=== PATIENT | female | born 1955 | race Caucasian/White ===

== ENCOUNTER 2017-06-01 07:43 | Inpatient (IN) | payer OTHER ==
[2017-05-03 13:16] VITALS: Ht 165.1 cm; Wt 92.5 kg
--- NOTE | 2017-05-03 13:51 | PAT Medication Instructions ---
Service Date May 03, 2017. Current Home Medication List Aspirin (Aspirin Ec), 81 MG PO HS Diclofenac (Voltaren), 75 MG PO BID PRN for PRN Diltiazem Hcl Coated Beads (Cardizem Cd), 240 MG PO QAM Fluticasone Propionate (Nasal) (Flonase Allergy Relief), 2 SPRAYS INTNAS QAM Irbesartan (Avapro), 1 TAB PO QAM Magnesium Oxide (Mag-Ox), 400 MG PO HS Melatonin (Melatonin Maximum Strengt), 1 TAB PO HS Multivitamin (Multivitamin), 1 TAB PO QAM Naproxen (Aleve), 440 MG PO PRN [place]-3 Fatty Acids (Fish Oil), 1 TAB PO BID Omeprazole (Prilosec), 20 MG PO QAM Medication Instructions For Your Scheduled Surgery - Hold the following medications 2 weeks prior to surgery: [place]-3 Fatty Acids (Fish Oil), 1 TAB PO BID - Hold the following medications the morning of surgery: Multivitamin (Multivitamin), 1 TAB PO QAM Irbesartan (Avapro), 1 TAB PO QAM Diclofenac (Voltaren), 75 MG PO BID PRN for PRN (otherwise okay to continue per surgeon) Naproxen (Aleve), 440 MG PO PRN (otherwise okay to continue per surgeon) - Take the following medications the morning of surgery with a sip of water OTHERWISE NOTHING TO EAT OR DRINK AFTER MIDNIGHT: Omeprazole (Prilosec), 20 MG PO QAM Diltiazem Hcl Coated Beads (Cardizem Cd), 240 MG PO QAM Fluticasone Propionate (Nasal) (Flonase Allergy Relief), 2 SPRAYS INTNAS QAM - Take the following medications as scheduled the night before surgery: Aspirin (Aspirin Ec), 81 MG PO HS Magnesium Oxide (Mag-Ox), 400 MG PO HS Melatonin (Melatonin Maximum Strengt), 1 TAB PO HS If you have any questions please call us at [phone] or [phone] or [phone]
[2017-05-03 14:23] LABS: BASO % 0.3 %; BASO ABS # 0.03 K/uL (0-0.2); EOS % 6.4 %; EOS ABS # 0.65 K/uL (0-0.5); HEMATOCRIT 42.8 % (37-47); HEMOGLOBIN 14.7 g/dL (12.0-16.0); IG# 0.02 K/uL (0.00-0.02); LYMPH % 26.4 %; LYMPH ABS # 2.67 K/uL (1.2-3.4); MEAN CELL VOLUME 87.2 fL (80-100); MEAN CORPUSCULAR HEMOGLOBIN 29.9 pg (25-34); MEAN CORPUSCULAR HGB CONC 34.3 g/dl (32-36); MEAN PLATELET VOLUME 9.8 fL (7.4-10.4); MONO % 8.8 %; MONO ABS # 0.89 K/uL (0.11-0.59); NEUT % 57.9 %; NEUT ABS # 5.85 K/uL (1.4-6.5); PLATELET COUNT 226 K/uL (130-400); RED CELL DISTRIBUTION WIDTH CV 13.2 % (11.5-14.5); RED CELL DISTRIBUTION WIDTH SD 42.2 fL (36.4-46.3); WHITE BLOOD COUNT 10.11 K/uL (4.8-10.8)
[2017-05-03 14:36] LABS: INR 0.9 (0.9-1.1); PTT PATIENT 24.9 SECONDS (21.0-31.0)
--- NOTE | 2017-05-03 14:44 | DIAGNOSTIC IMAGING REPORT ---
CHEST 2 VIEWS ROUTINE CLINICAL HISTORY: PAT preoperative evaluation COMPARISON STUDY: No previous studies for comparison. FINDINGS: The bones soft tissues and hemidiaphragms are normal. The cardiomediastinal silhouette is normal. The lungs are clear. The pulmonary vasculature is normal. IMPRESSION: Negative chest. The above report was generated using voice recognition software. It may contain grammatical, syntax or spelling errors. Electronically signed by: Enoch Samaniego M.D. 05/03/2017 2:43 PM Dictated Date/Time: 05/03/2017 2:43 PM
[2017-05-03 15:18] LABS: CALCIUM 9.6 mg/dl (8.5-10.1); CREATININE 1.07 mg/dl (0.60-1.20); POTASSIUM 4.3 mmol/L (3.5-5.1)
--- NOTE | 2017-05-27 08:59 | HISTORY & PHYSICAL EXAMINATION ---
DATE OF ADMISSION: 06/01/2017 CHIEF COMPLAINT: Primary osteoarthritis of the right hip. HISTORY OF PRESENT ILLNESS: Franca is a pleasant 61-year-old female who has been dealing with chronic right hip pain for several years. X-rays and clinical examination were diagnostic for primary osteoarthritis of the right hip. After failing extensive conservative treatment, she has elected to proceed with a right total hip arthroplasty. PAST MEDICAL HISTORY: Significant for hypertension, irregular heartbeats when her magnesium was low, sleep apnea, osteoarthritis, GERD. MEDICATIONS: Include Cardizem 240 mg daily, Avapro 300 mg daily, Prilosec 20 mg daily, fish oil 1200 mg daily, Flonase daily, propionate 50 mcg daily, aspirin 81 mg daily, magnesium daily, and melatonin 5 mg daily. ALLERGIES: Include no drug allergies. PAST SURGICAL HISTORY: Include tubal ligation in 1983, kidney stones in 2015, sclerotherapy EVLA in 2013, and a sinuplasty in 2014. SOCIAL HISTORY: She denies any tobacco, alcohol or IV drug use. FAMILY HISTORY: Noncontributory. REVIEW OF SYSTEMS: She complains of right hip and groin pain. All other pertinent review of systems is negative. PHYSICAL EXAMINATION: GENERAL: She is awake, alert and oriented x3. She is in no apparent distress. She is very pleasant. HEENT: Pupils are equal, round and reactive to light. Extraocular motion is intact. Oral mucosa is pink and moist. HEART: Regular rate per radial pulse. LUNGS: Elena symmetrically bilaterally with no audible breath sounds. ABDOMEN: Soft, nontender, nondistended. MUSCULOSKELETAL: On physical examination of the right hip, her right leg is a little bit shorter than the left. She has a significant decreased range of motion. She has pain with forced internal and external rotation. She is neurovascularly intact. IMAGING: X-rays of the hip and pelvis show primary osteoarthritis with joint space narrowing and osteophyte formation. IMPRESSION: Primary osteoarthritis of the right hip. PLAN: We will proceed with a right total hip arthroplasty. Postoperatively, she will be started on aspirin for DVT prophylaxis and kept in the hospital for 2 midnights for postoperative medical management.
[2017-06-01] VITALS (7 sets, daily range): BP systolic 114–171; BP diastolic 65–80; PULSE 74–89; TEMP 36.4–37; O2SAT 92–98
[~2017-06-01] VITALS: Ht 165.1 cm; Wt 92.5 kg
[2017-06-01] MEDS: TRANEXAMIC ACID INJ 1,000 MG in SYRINGE 0 ML IV SCH ×2 (06:00→14:50)
--- NOTE | 2017-06-01 06:40 | History & Physical Bridge Note ---
H&P Re-Evaluation Bridge Note: I have examined the patient, reviewed the History & Physical and in the interval since the performance of the History & Physical I have noted the following changes of clinical significance: No changes noted
[~2017-06-01 07:43] MED LIST: ACETAMINOPHEN 500 MG TAB PO SCH; ASPI81TA28 PO; BUPIVACAINE 0.5 % 5 MG/1 ML PF 10ML VIAL ONE; CEFAZOLIN 2000MG IV PUSH 10 ML IV SCH; DICL-201 PO; DILT240C57 PO; FAMOTIDINE 20 MG TAB PO SCH; FLUT0.15 INTNAS; GABAPENTIN 300 MG CAP PO SCH; IRBE-39 PO; LACTATED RINGER'S 1000ML IV SCH; LACTATED RINGER'S 500 ML IV SCH; MAGN400T6 PO; MELATAB2 PO; MULT-506 PO; NAPR1TAB9 PO; OMEG-21 PO; PRLSR20 PO; ROPIVACAINE 5MG/ML 30 ML 150 MG, BUPIVACAINE 0.5% MPF INJ 30 ML, EpINEphrine HCL INJ 0.... INFIL SCH
[2017-06-01] MEDS ORDERED: ATROPINE SULFATE 0.1 MG/ML 5ML SYR IV PRN (08:15)
[2017-06-01] MEDS ORDERED: FENTANYL CITRATE INJ 50 MCG/1 ML 2 ML VIAL IV PRN (08:15)
[2017-06-01] MEDS ORDERED: ONDANSETRON INJ 2 MG/ML 2 ML VIAL IV PRN ×2 (08:15→12:30)
[2017-06-01] MEDS ORDERED: EpHEDrine SULFATE INJ 50 MG/ML AMP IV PRN (08:15)
[2017-06-01] MEDS ORDERED: FENTANYL CITRATE INJ 50 MCG/1 ML 2 ML VIAL ONE ×2 (08:59→11:33)
[2017-06-01] MEDS ORDERED: MIDAZOLAM HCL 1 MG/ML 2ML VIAL ONE (08:59)
[2017-06-01] MEDS ORDERED: ORTHO JOINT ANESTHETIC ONE (09:50)
[2017-06-01] MEDS ORDERED: BACITRACIN 50000 UNIT VIAL ONE (09:50)
[2017-06-01] MEDS ORDERED: ONDANSETRON INJ 2 MG/ML 2 ML VIAL ONE (11:47)
[2017-06-01] MEDS ORDERED: EpHEDrine SULFATE 50MG/5ML SYR ONE (11:47)
[2017-06-01] MEDS ORDERED: PHENYLEPHRINE HCL INJ 10 MG/ML VIAL ONE (11:47)
[2017-06-01] MEDS ORDERED: PROPOFOL IV EMULSION 10 MG/ML 20 ML VIAL IV ONE (11:47)
--- NOTE | 2017-06-01 12:17 | [facility] Post Operative Brief Note ---
Immediate Operative Summary Operative Date Jun 01, 2017. Pre-Operative Diagnosis Right Hip Degenerative Joint Disease Post-Operative Diagnosis Same as preop Procedure(s) Performed Right Anterior Total Hip Arthroplasty Uncemented Surgeon Dr. Vivas Crnp Surgeon(s) Otoniel Poole PA-C Estimated Blood Loss 250 ml Findings as above Specimens A. Right Femoral Head Complication(s) None Disposition Recovery Room / PACU
--- NOTE | 2017-06-01 12:24 | DIAGNOSTIC IMAGING REPORT ---
R HIP UNILATERAL 1 VIEW CLINICAL HISTORY: 61 years-old Female presenting with RT ANTERIOR HIP. TECHNIQUE: 2 fluoroscopic spot image(s) obtained as part of an intraoperative procedure. COMPARISON: 05/03/2017. FINDINGS/IMPRESSION: There has been interval total right hip arthroplasty. No gross malalignment or hardware convocation. Please see surgical report for further details. Fluoroscopy dosage (mGy): 6.45. Fluoroscopy time: 42.1 seconds. Number of fluoroscopic spot images: 2. Electronically signed by: Ruben Perez M.D. 06/01/2017 12:22 PM Dictated Date/Time: 06/01/2017 12:20 PM
[2017-06-01] MEDS ORDERED: METOCLOPRAMIDE HCL INJ 5 MG/ML 2 ML VIAL IV PRN (12:30)
[2017-06-01] MEDS ORDERED: SOD PHOSPHATE/SOD BIPHOSPHATE ENEMA 132 ML BTL PR PRN (12:30)
[2017-06-01] MEDS ORDERED: MoRPHine SULFATE 2 MG/ML CARP IV PRN (12:30)
[2017-06-01] MEDS ORDERED: MAGNESIUM HYDROXIDE SUSP 30 ML UDC PO PRN (12:30)
[2017-06-01] MEDS ORDERED: BISACODYL 10 MG SUPP PR PRN (12:30)
--- NOTE | 2017-06-01 13:12 | Anesthesiology Progress Note ---
Anesthesia Post Op Note Date & Time Jun 01, 2017 at 13:12 Vital Signs Pain Intensity: 0 Vital Signs Past 12 Hours Date Time Temp Pulse Resp B/P (MAP) Pulse Ox O2 Delivery O2 Flow Rate FiO2 06/01/17 12:56 130/64 06/01/17 12:52 79 14 06/01/17 12:52 78 14 97 06/01/17 12:51 116/62 06/01/17 12:47 75 14 06/01/17 12:47 75 14 97 06/01/17 12:46 99/57 06/01/17 12:45 73 15 97 06/01/17 12:45 74 15 06/01/17 12:41 106/62 06/01/17 12:40 72 13 98 06/01/17 12:40 72 13 06/01/17 12:36 114/60 06/01/17 12:35 72 16 95 06/01/17 12:35 36.3 76 14 114/60 98 Oxymask 10 06/01/17 12:35 72 16 06/01/17 08:04 36.5 77 20 171/65 97 Room Air Notes Mental Status: alert / awake / arousable, participated in evaluation Pt Amnestic to Procedure: Yes Nausea / Vomiting: adequately controlled Pain: adequately controlled Airway Patency, RR, SpO2: stable & adequate BP & HR: stable & adequate Hydration State: stable & adequate Neuraxial Anesthesia: was administered, sensory block is resolving Anesthetic Complications: no major complications apparent
--- NOTE | 2017-06-01 13:35 | DIAGNOSTIC IMAGING REPORT ---
R PELVIS/UNILATERAL HIP 3 VIEW CLINICAL HISTORY: Right hip arthroplasty COMPARISON STUDY: No previous studies for comparison. FINDINGS: There are postsurgical changes of a total right hip arthroplasty. Overlying skin cole and surgical drains are evident. There is air within the soft tissues consistent with recent surgery. No fractures or dislocations are visualized. IMPRESSION: Postsurgical changes of a total right hip arthroplasty Electronically signed by: Bandar Liu M.D. 06/01/2017 1:33 PM Dictated Date/Time: 06/01/2017 1:33 PM
[2017-06-01] MEDS: SODIUM CHLORIDE 0.9% 1000ML 1,000 ML IV SCH (14:45)
[2017-06-01] MEDS ORDERED: CEFAZOLIN IV 2,000 MG in SYRINGE 0 ML IV SCH (16:00)
[2017-06-01] MEDS: ACETAMINOPHEN IV 1,000 MG in EMPTY BAG 0 ML IV SCH (16:08)
[2017-06-01] MEDS: KETOROLAC TROMETHAMINE 30 MG/ML VIAL IV. SCH (18:04)
[2017-06-01] MEDS: SENNA 8.6 MG TAB PO SCH (20:51)
[2017-06-01] MEDS: MAGNESIUM OXIDE 400 MG TAB PO SCH (20:51)
[2017-06-01] MEDS: DOCUSATE SODIUM 100 MG CAP PO SCH (20:52)
[2017-06-01] MEDS: OMEGA-3 (PURIFIED FISH OIL) 1 GM CAP PO SCH (20:52)
[2017-06-01] MEDS: ASPIRIN 325 MG ECTAB PO SCH (20:55)
[2017-06-01] MEDS ORDERED: NON-FORMULARY MEDICATION (Melatonin (Melatonin Maximum Strengt) 1 TAB) PO SCH (21:00)
[2017-06-02] MEDS: ACETAMINOPHEN IV 1,000 MG in EMPTY BAG 0 ML IV SCH ×2 (00:09→08:40)
[2017-06-02] MEDS: KETOROLAC TROMETHAMINE 30 MG/ML VIAL IV. SCH ×4 (00:09→20:31)
[2017-06-02] MEDS: SODIUM CHLORIDE 0.9% 1000ML 1,000 ML IV SCH ×2 (00:34→08:45)
[2017-06-02] MEDS: MELATONIN 3 MG TAB PO PRN (01:38)
[2017-06-02 03:13] VITALS: BP 136/77; PULSE 85; TEMP 36.9; O2SAT 93
[2017-06-02 06:32] LABS: BASO % 0.1 %; BASO ABS # 0.01 K/uL (0-0.2); HEMOGLOBIN 11.6 g/dL (12.0-16.0); IG# 0.04 K/uL (0.00-0.02); LYMPH % 7.9 %; LYMPH ABS # 1.01 K/uL (1.2-3.4); MEAN CELL VOLUME 85.7 fL (80-100); MEAN CORPUSCULAR HEMOGLOBIN 30.1 pg (25-34); MEAN CORPUSCULAR HGB CONC 35.2 g/dl (32-36); MEAN PLATELET VOLUME 9.8 fL (7.4-10.4); MONO % 5.9 %; MONO ABS # 0.75 K/uL (0.11-0.59); NEUT % 85.8 %; NEUT ABS # 10.96 K/uL (1.4-6.5); PLATELET COUNT 178 K/uL (130-400); RED CELL DISTRIBUTION WIDTH SD 40.7 fL (36.4-46.3); WHITE BLOOD COUNT 12.77 K/uL (4.8-10.8)
[2017-06-02 07:06] LABS: CALCIUM 8.5 mg/dl (8.5-10.1); CREATININE 1.16 mg/dl (0.60-1.20); POTASSIUM 5.1 mmol/L (3.5-5.1)
--- NOTE | 2017-06-02 07:18 | PROGRESS NOTE ---
DATE: 06/02/2017 CHIEF COMPLAINT: Status post right total hip arthroplasty postop day #1. PROGRESS: Franca was seen and examined at bedside today. Overall, she is doing fairly well. She has been up and using the bathroom. She does not have too much pain in her hip and she has no complaints. PHYSICAL EXAMINATION: The Prevena VAC dressing is to suction and the drain is to suction. Her leg lengths are almost equal. She has active dorsiflexion and plantarflexion of her right ankle and sensation is intact. LABORATORY DATA: She has an H&H today of 11.6 and 33.0. Her PRP is pending. Her vital signs are stable on room air and she is voiding on her own. X-rays postoperatively of the right hip showed the prosthesis to be in anatomical alignment without any evidence of fracture, dislocation or loosening. IMPRESSION: Status post right total hip arthroplasty postop day #1. PLAN: At this point, she is doing as well as expected. She will be up and ambulating with physical therapy today. Tomorrow the nursing staff can pull the drain and will likely discharge her to home.
[2017-06-02] MEDS: PANTOprazole SOD 40 MG TAB PO SCH (07:55)
[2017-06-02 08:02] VITALS: BP 158/82; PULSE 82; TEMP 37.2; O2SAT 92
[2017-06-02] MEDS: MULTIVITAMIN TAB PO SCH (08:40)
[2017-06-02] MEDS: ASPIRIN 325 MG ECTAB PO SCH ×2 (08:40→20:30)
[2017-06-02] MEDS: OMEGA-3 (PURIFIED FISH OIL) 1 GM CAP PO SCH ×2 (08:42→20:30)
[2017-06-02] MEDS: DOCUSATE SODIUM 100 MG CAP PO SCH ×2 (08:42→20:30)
[2017-06-02] MEDS: FLUTICASONE PROPIONATE NA SPR 16 GM BTL SCH (08:43)
[2017-06-02] MEDS: IRBESARTAN 150 MG TAB PO SCH (08:44)
[2017-06-02] MEDS: DILTIAZEM HCL 240 MG CAPCR PO SCH (08:45)
[2017-06-02 09:04] VITALS: O2SAT 92
[2017-06-02 11:57] VITALS: BP 128/76; PULSE 80; TEMP 37; O2SAT 96
[2017-06-02] MEDS ORDERED: NURSING VERBAL MED ORDER ONE (15:15)
[2017-06-02 15:52] VITALS: BP 158/79; PULSE 74; TEMP 36.8; O2SAT 94
--- NOTE | 2017-06-02 17:18 | Discharge Instructions ---
Discharge Instructions Date of Service Jun 02, 2017. Admission Reason for Admission: Right Hip Degenerative Joint Disease Discharge Discharge Diagnosis / Problem: Right Total Hip Discharge Goals Goal(s): Decrease discomfort, Improve function Activity Recommendations Activity Limitations: as noted below . Instructions / Follow-Up Instructions / Follow-Up Activity and Therapy Recommendations: * If you are using [facility] then Physical Therapy will be provided until they feel you are ready to start Outpatient Physical Therapy. If you are not using a Home Health agency then Outpatient Physical Therapy should start about 3-5 days from your day of surgery. Therapy will last about 3-6 weeks * You were shown a series of exercises in the hospital. Do these exercises three times each day including the exercises you were shown in physical therapy. * Get up and walk several times each day.~ For the first four weeks, try not to stand or walk for more than one hour at a time. If you do stand or walk for more than one hour, you will not hurt anything, but your leg will likely swell.~ ~ * As you feel comfortable, you may change from the walker or crutches to a cane and~then to independent walking. Medications: * Narcotic You will likely be sent home from the hospital with a prescription for the narcotic pain medication that worked best throughout your stay. * Aspirin Most patients will be required to take Aspirin 325mg twice a day for 6 weeks after surgery. This is obtained [id number] and a prescription is not necessary. * Other medications may be prescribed for specific circumstances. If you have any questions, please call the office at . * Resume previous home medications unless otherwise instructed TEDs/Elastic Stockings: The white elastic stockings help limit swelling and prevent blood clots from forming in your legs. The more you wear them, the more they work. Wear them for six weeks. Dressing Care: Remove VAC sponge dressing at 10 days if it is still in place Showering: May shower with the VAC dressing. Do not let the shower spray directly hit the dressing Things To Watch For: * Drainage from the incision site that occurs more than one week after your surgery. * Increased redness at the incision site. * Fever above 102 degrees Fahrenheit. * Unusual chest pain or shortness of breath. * Call [facility] at with any of the above problems Follow-Up Visit: Follow-up with Dr. Vivas 2 weeks after your day of surgery. An appointment was probably scheduled when you signed-up for surgery in the office. If you have any questions call Office Instructions: More detailed instructions as well as Frequently Asked Questions were provided in a folder by our office when you signed-up for surgery. Please review these instructions when you get home. If you have any further questions or concerns, please feel free to call the office at [phone] Current Hospital Diet Patient's current hospital diet: Regular Diet Discharge Diet Recommended Diet: Regular Diet Procedures Procedures Performed: Right Anterior Total Hip Arthroplasty Uncemented Pending Studies Studies pending at discharge: no Medical Emergencies . Who to Call and When: Medical Emergencies: If at any time you feel your situation is an emergency, please call 911 immediately. . Non-Emergent Contact Non-Emergency issues call your: Surgeon Call Non-Emergent contact if: wound has increased drainage, wound has increased redness . "Provider Documentation" section prepared by Stewart Vivas. . VTE Core Measure Inpt VTE Proph given/why not?: Other Anticoagulation (Aspirin 325 twice a day for 6 weeks)
[2017-06-02] MEDS: MAGNESIUM OXIDE 400 MG TAB PO SCH (20:30)
[2017-06-02] MEDS: SENNA 8.6 MG TAB PO SCH (20:30)
[2017-06-02] MEDS: ACETAMINOPHEN 500 MG TAB PO SCH (22:12)
[2017-06-02] MEDS: OXYCODONE HCL IR 5 MG TAB (IMMEDIATE RELEASE) PO PRN (22:14)
[2017-06-02 22:58] VITALS: BP 147/74; PULSE 74; TEMP 37; O2SAT 95
[2017-06-03] MEDS: MELATONIN 3 MG TAB PO PRN (00:20)
[2017-06-03] MEDS: KETOROLAC TROMETHAMINE 30 MG/ML VIAL IV. SCH ×3 (00:20→11:42)
[2017-06-03] MEDS: ACETAMINOPHEN 500 MG TAB PO SCH ×2 (05:16→13:47)
[2017-06-03 06:03] VITALS: BP 132/77; PULSE 66; TEMP 36.6; O2SAT 92
[2017-06-03] MEDS: FLUTICASONE PROPIONATE NA SPR 16 GM BTL SCH (07:02)
[2017-06-03] MEDS: PANTOprazole SOD 40 MG TAB PO SCH (07:03)
[2017-06-03] MEDS: DOCUSATE SODIUM 100 MG CAP PO SCH (07:08)
[2017-06-03] MEDS: MULTIVITAMIN TAB PO SCH (07:08)
[2017-06-03] MEDS: OXYCODONE HCL IR 5 MG TAB (IMMEDIATE RELEASE) PO PRN (07:08)
[2017-06-03] MEDS: IRBESARTAN 150 MG TAB PO SCH (07:09)
[2017-06-03] MEDS: ASPIRIN 325 MG ECTAB PO SCH (07:09)
[2017-06-03] MEDS: DILTIAZEM HCL 240 MG CAPCR PO SCH (07:09)
[2017-06-03] MEDS: OMEGA-3 (PURIFIED FISH OIL) 1 GM CAP PO SCH (07:09)
[2017-06-03] MEDS ORDERED: ASPEC325 PO (07:25)
[2017-06-03] MEDS ORDERED: RXC5 PO (07:25)
--- NOTE | 2017-06-03 07:45 | PROGRESS NOTE ---
DATE: 06/03/2017 CHIEF COMPLAINT: Status post right total hip arthroplasty postop day #2. PROGRESS: Franca was seen and examined at bedside today. Overall, she is doing very well. She was up and ambulating well with physical therapy. Her pain is controlled. She has no complaints. PHYSICAL EXAMINATION: RIGHT HIP: The Prevena VAC dressing is to suction. The Hemovac drain has been pulled. She has active dorsiflexion and plantarflexion of her right ankle and active extension of her knee. IMPRESSION: Status post right total hip arthroplasty postop day #2. PLAN: At this point, she is doing well and happy with her progress. She will continue physical therapy today. The drain has been pulled. She can be discharged to home with home health later today.
--- NOTE | 2017-06-03 07:48 | DISCHARGE SUMMARY ---
DISCHARGE DIAGNOSIS: Primary osteoarthritis of the right hip. PROCEDURE: Right total hip arthroplasty on 06/01/[address] Stewart Vivas. DISCHARGE INSTRUCTIONS: 1. Aspirin 325 mg twice a day for 6 weeks. 2. Oxycodone 5-10 mg every 4 hours as needed for pain. 3. Voltaren 75 mg as needed. 4. Cardizem 240 mg daily. 5. Flonase 2 sprays in the morning. 6. Avapro 300 mg daily. 7. Magnesium 400 mg at night. 8. Melatonin 5 mg at night. 9. Aleve as needed for pain. 10. Prilosec 20 mg daily. 11. Daily multivitamin. 12. Weight bear as tolerated. 13. Pull off Prevena VAC dressing if it still on it 10 days. 14. Follow up with Dr. Vivas in 2 weeks. 15. Call the office of Dr. Vivas with any questions or concerns. HOSPITAL COURSE: Franca is a pleasant 61-year-old female who presented to my office with chronic right hip and groin pain. X-rays and clinical examination were diagnostic for primary osteoarthritis of the right hip. After failing conservative treatment, she elected to undergo a right total hip arthroplasty. On 06/01/2017, she arrived at [facility] and underwent a right hip replacement without complication. She had a spinal anesthetic that was converted to a general. She was started on aspirin 325 mg twice a day for DVT prophylaxis postoperatively. Her hospital course was uneventful. On postop day #1, her H&H was stable at 11.6 and 33.0. She was up and ambulating well with physical therapy. Her pain was controlled. On postop day #2, the Hemovac drain was pulled and she continued to work well with physical therapy. Her pain was controlled and she was subsequently discharged to home with home health and the above instructions.
[2017-06-03 09:49] VITALS: BP 132/77; PULSE 66; TEMP 36.6; O2SAT 92
--- NOTE | 2017-06-15 13:10 | OPERATIVE REPORT ---
DATE OF OPERATION: 06/01/2017 PREOPERATIVE DIAGNOSIS: Primary osteoarthritis of the right hip. POSTOPERATIVE DIAGNOSIS: Same. PROCEDURE: Right total hip arthroplasty. SURGEON: Dr. Stewart Vivas. DIRECTOR OF DIVERSITY AND INCLUSION: Otoniel Poole PA-C, whose assistance was necessary for positioning the leg and helping with instrumentation and closure. ANESTHESIA: Spinal. COMPLICATIONS: None. CONDITION: Stable to PACU. IMPLANTS USED: I used a [employer] Taperloc total hip arthroplasty system with a size 11 pressfit Taperloc stem, a size 32 ceramic head with a -3 neck and a size 48 G7 acetabular cup. INDICATIONS: Franca is a pleasant female who presented to my office with complaints of chronic right hip and groin pain. X-rays and clinical examination were diagnostic for primary osteoarthritis of the right hip. After failing an extensive conservative treatment, she elected to undergo a right total hip arthroplasty. DESCRIPTION OF PROCEDURE: On 06/01/2017, she arrived at [facility] for the above procedure. She was seen in the preoperative holding area and the operative extremity was identified and signed. She was given a preoperative antibiotic and a spinal anesthetic. She was taken back to the operating room, laid on the table the in supine position, and given basic sedation. The right hip was then prepped and draped in sterile fashion. Time-out was done and the patient's operative extremity was properly identified. An anterior approach was used. Dissection was taken down through the fascia and the vastus was retracted laterally and the rectus was retracted medially. The circumflex vessels were ligated and the capsule was exposed. The capsule was then incised and tagged for later closure. The femoral neck was then resected and the femoral head was removed. The acetabulum was exposed. Time was spent doing a complete circumferential labral release. Sequential reaming up to a size 47 reamer was done. Appropriate version was checked under fluoroscopy. A 48-mm G7 cup was then impacted into place. A single screw was placed followed by a polyethylene liner. The proximal femur was then exposed. Sequential broaching up to a size 11 broach was done. A trial size 32 head with a standard neck was used. The hip was reduced. I was happy with the size of the components. The leg looked a little bit long. The hip was then dislocated. A final size 11 implant was then impacted into place. A size 32 head with a -3 neck was then impacted into place and the hip was reduced. Final fluoroscopic images showed anatomical alignment and the appropriate leg lengths. The surrounding soft tissues were then injected with 100 mL of an orthopedic pain control cocktail. The wound was then irrigated with 3 liters of normal saline solution with bacitracin. The capsule was then closed with #1 Vicryl suture and the drain was placed. Fascia was closed with #1 PDS. Skin was closed with 2-0 Vicryl, 3-0 V-Loc suture and cole. A Prevena VAC dressing was placed. She was then taken to the postanesthesia care unit in stable condition. She tolerated the procedure well. I attest to the content of the Intraoperative Record and any orders documented therein. Any exception s are noted below.
== END 2017-06-03 16:54 | disposition home health service (06) | DRG 470 ==
LOC: C.ACU 07:43 → C.3E 12:22 → ENRESERV 12:59
PROVIDERS: ADMIT Orthopaedic Surgery; ATTEND Orthopaedic Surgery
PROC: 0SR904Z Replacement of Right Hip Joint with Ceramic on Polyethylene Synthetic Substitute, Open Approach (ICD-10-PCS; principal; 2017-06-01 10:00)
DX: M16.11 Unilateral primary osteoarthritis, right hip (principal); I10 Essential (primary) hypertension; K21.9 Gastro-esophageal reflux disease without esophagitis; G47.30 Sleep apnea, unspecified; E66.9 Obesity, unspecified; Z68.33 Body mass index [BMI] 33.0-33.9, adult; Z79.82 Long term (current) use of aspirin; Z79.899 Other long term (current) drug therapy